=== PATIENT | male | born 1965 | race Asian ===

== ENCOUNTER 2021-08-17 20:28 | Emergency (ER) | payer BC ==
[~2021-08-17] VITALS: Ht 175.3 cm; Wt 74.8 kg
[~2021-08-17 20:28] MED LIST: GLIP10TA66 PO; METF500T PO
[2021-08-17 20:35] VITALS: BP 141/84; TEMP 97
== END 2021-08-17 22:00 | disposition home or self-care (01) ==
LOC: ED 20:28
DX: S60.222A Contusion of left hand, initial encounter (principal); L03.114 Cellulitis of left upper limb; W20.8XXA Other cause of strike by thrown, projected or falling object, initial encounter; Y92.89 Other specified places as the place of occurrence of the external cause
CPT/HCPCS: 82948; 99283

== ENCOUNTER 2022-04-12 14:51 | Emergency (ER) | payer BC ==
[~2022-04-12] VITALS: Ht 175.3 cm; Wt 73.5 kg
[2022-04-12 14:54] VITALS: TEMP 100
[2022-04-12 15:36] LABS: PLATELET COUNT 166 K/uL (142-355)
[2022-04-12 15:49] LABS: POTASSIUM 3.9 mmol/L (3.6-5.2)
[2022-04-12 18:47] LABS: POTASSIUM 3.6 mmol/L (3.6-5.2)
[2022-04-12 19:01] VITALS: BP 137/82
== END 2022-04-12 19:01 | disposition home or self-care (01) ==
LOC: ED 14:51
PROVIDERS: Emergency Medicine Emergency Medical Services
DX: E11.65 Type 2 diabetes mellitus with hyperglycemia (principal); Z91.14 Patient's other noncompliance with medication regimen
CPT/HCPCS: 80048; 81002; 83735; 85027; 93005; 96360; 96361; 96374; 96375; 99284; J1815

== ENCOUNTER 2022-08-16 14:23 | Emergency (ER) | payer BC ==
[~2022-08-16] VITALS: Ht 175.3 cm; Wt 72.6 kg
[2022-08-16 14:30] VITALS: TEMP 97.8
[2022-08-16 16:04] VITALS: BP 132/74
== END 2022-08-16 16:04 | disposition home or self-care (01) ==
LOC: ED 14:23
DX: S05.01XA Injury of conjunctiva and corneal abrasion without foreign body, right eye, initial encounter (principal); H44.001 Unspecified purulent endophthalmitis, right eye
CPT/HCPCS: 99283